=== PATIENT | female | born 1985 | race Caucasian/White ===

== ENCOUNTER 2017-04-16 12:33 | Outpatient (CLI) | payer BC ==
[~2017-04-16] VITALS: Ht 162.6 cm; Wt 75.0 kg
[2017-04-16 12:25] VITALS: BP 104/57
[~2017-04-16 12:33] MED LIST: DOCU-131 PO; FERR325T18 PO; IBUP-1222 PO; OXYC-302 PO; PREN1TAB60 PO
[2017-04-16] MEDS ORDERED: TERBUTALINE 1 MG/ML, 1ML ONE (13:00)
[2017-04-16] MEDS ORDERED: TERBUTALINE 1 MG/ML, 1ML SQ ONE (13:00)
== END 2017-04-16 14:25 | disposition home or self-care (01) ==
LOC: LDOP 12:33
PROVIDERS: ATTEND Obstetrics & Gynecology
DX: O60.00 Preterm labor without delivery, unspecified trimester (principal); Z3A.00 Weeks of gestation of pregnancy not specified
CPT/HCPCS: 59025; 96372; 99211; J3105; G0463

== ENCOUNTER 2017-04-18 13:50 | Outpatient (CLI) | payer BC ==
[~2017-04-18] VITALS: Ht 162.6 cm; Wt 75.0 kg
[2017-04-18 14:28] VITALS: BP 112/67
[2017-04-18] MEDS ORDERED: TERBUTALINE 1 MG/ML, 1ML ONE (15:19)
[2017-04-18] MEDS ORDERED: TERBUTALINE 1 MG/ML, 1ML SQ ONE (15:30)
[2017-04-18 15:50] LABS: MICROSCOPIC INDICATED
== END 2017-04-18 16:04 | disposition home or self-care (01) ==
LOC: LDOP 13:50
PROVIDERS: ATTEND Obstetrics & Gynecology
DX: O26.893 Other specified pregnancy related conditions, third trimester (principal); O62.9 Abnormality of forces of labor, unspecified; R10.9 Unspecified abdominal pain
CPT/HCPCS: 36415; 59025; 81001; 82731; 87086; 99211; G0463

== ENCOUNTER 2017-06-22 22:02 | Inpatient (IN) | payer BC ==
[~2017-06-22] VITALS: Ht 162.6 cm; Wt 78.6 kg
[2017-06-22 22:50] LABS: CULTURE INDICATED? YES; MICROSCOPIC INDICATED
[2017-06-23] MEDS ORDERED: D5%-LACTATED RINGERS 1,000 ML IV SCH (00:58)
[2017-06-23] MEDS ORDERED: OXYTOCIN 30U/ 0.9% NaCL 500ML 500 ML IV ONE (00:58)
[2017-06-23] MEDS ORDERED: LACTATED RINGERS 1,000 ML IV SCH ×2 (00:58→02:05)
[2017-06-23] MEDS ORDERED: SODIUM CITRATE/CITRIC ACID 30 ML UDC PO PRN (01:00)
[2017-06-23] MEDS ORDERED: CALCIUM CARBONATE 500 MG TAB.CHEW PO PRN (01:00)
[2017-06-23] MEDS ORDERED: TERBUTALINE 1 MG/ML, 1ML IVPush PRN (01:00)
[2017-06-23] MEDS ORDERED: ONDANSETRON 2MG/ML, 2ML IV PRN (01:00)
[2017-06-23] MEDS ORDERED: METOCLOPRAMIDE 5 MG/ML, 2ML IVPush PRN (01:00)
[2017-06-23] MEDS ORDERED: FENTANYL PF 100 MCG/2ML IV PRN (01:00)
[2017-06-23] MEDS ORDERED: FENTANYL PF 100 MCG/2ML IVPush PRN (01:00)
[2017-06-23] MEDS ORDERED: NEWBORN KIT ONE (01:02)
[2017-06-23] MEDS ORDERED: OXYTOCIN 30U/ 0.9% NaCL 500ML 500 ML ONE (01:03)
[2017-06-23] MEDS ORDERED: LIDOCAINE-MPF 1%, 5ML ONE (01:03)
[2017-06-23] MEDS ORDERED: METOCLOPRAMIDE 5 MG/ML, 2ML ONE (01:03)
[2017-06-23] MEDS ORDERED: SODIUM CITRATE/CITRIC ACID 30 ML UDC ONE ×2 (01:03→01:04)
[2017-06-23] MEDS ORDERED: MISOPROSTOL 200 MCG TABLET ONE (01:03)
[2017-06-23 01:27] LABS: BASOPHILS # (AUTO) 0.12 x10^3/uL (0-0.1); BASOPHILS % (AUTO) 1 % (0-1); EOSINOPHILS # (AUTO) 0.66 x10^3/uL (0-0.4); EOSINOPHILS % (AUTO) 5 % (1-7); LYMPHOCYTES # (AUTO) 3.03 x10^3/uL (1-3.4); LYMPHOCYTES % (AUTO) 23 % (22-44); MD NO; MEAN CORPUSCULAR HEMOGLOBIN 29.8 pg (27.0-34.8); MEAN CORPUSCULAR HGB CONC 33.2 g/dL (32.4-35.8); MEAN CORPUSCULAR VOLUME 89.5 fL (80-100); MEAN PLATELET VOLUME 8.7 fL (7.4-10.4); MONOCYTES # (AUTO) 0.75 x10^3/uL (0.2-0.8); MONOCYTES % (AUTO) 6 % (2-9); NEUTROPHILS # (AUTO) 8.42 x10^3/uL (1.8-6.8); NEUTROPHILS % (AUTO) 65 % (42-75); PLATELET COUNT 207 x10^3/uL (130-400); RED BLOOD COUNT 3.78 x10^6/uL (3.82-5.3); RED CELL DISTRIBUTION WIDTH 14.3 % (9.6-15.2)
[2017-06-23] MEDS ORDERED: FAMOTIDINE 20 MG/2 ML IVPush ONE (01:30)
[2017-06-23] MEDS ORDERED: FENTANYL/BUPIV./NS/PF 250 ML EPIDCONT ONE (01:34)
[2017-06-23] MEDS ORDERED: BUPIVACAINE 0.25% ONE (01:34)
[2017-06-23] MEDS ORDERED: FENTANYL/BUPIV./NS/PF 250 ML EPIDCONT SCH (02:05)
[2017-06-23] MEDS ORDERED: LACTATED RINGERS 1,000 ML IVBOLUS PRN (02:30)
[2017-06-23] MEDS ORDERED: EPHEDRINE 50 MG/ML, 1ML IVPush PRN (02:30)
[2017-06-23] MEDS ORDERED: LACTATED RINGERS 1,000 ML INTUTE PRN (03:30)
[2017-06-23] MEDS ORDERED: LACTATED RINGERS 1,000 ML INTUTE SCH (03:30)
[2017-06-23] MEDS ORDERED: ONDANSETRON ODT 4 MG ONE (07:40)
[2017-06-23] MEDS ORDERED: ONDANSETRON 4 MG TABLET PO PRN (08:00)
[2017-06-23] MEDS: OXYTOCIN 30U/ 0.9% NaCL 500ML 500 ML IV SCH ×2 (10:50→20:50)
[2017-06-23] MEDS ORDERED: DIPH,PERTUSS(ACELL),TET VAC/PF NC IM-VACC PRN (11:00)
[2017-06-23] MEDS ORDERED: RHOGAM FROM BLOOD BANK 1 NOTE EA IM/IV ONE (11:00)
[2017-06-23] MEDS ORDERED: ACETAMINOPHEN 325 MG TABLET PO PRN ×2 (11:00)
[2017-06-23] MEDS ORDERED: DOCUSATE 100 MG CAPSULE PO PRN (11:00)
[2017-06-23] MEDS ORDERED: MEASLES,MUMPS&RUBELLA VACC/PF 0.5 ML SQ-VACC PRN (11:00)
[2017-06-23] MEDS ORDERED: MISOPROSTOL 200 MCG TABLET PR PRN (11:00)
[2017-06-23] MEDS ORDERED: METHYLERGONOVINE 0.2 MG/ML IM PRN (11:00)
[2017-06-23] MEDS ORDERED: CARBOPROST TROMETHAMINE 250 MCG/ML, 1ML IM PRN (11:00)
[2017-06-23 12:55] VITALS: BP 109/68
[2017-06-23] MEDS: IBUPROFEN 600 MG TABLET PO PRN ×2 (15:48→22:31)
[2017-06-23 17:00] VITALS: BP 99/64
[2017-06-23] MEDS: OXYcodone/APAP 5/325MG TABLET PO PRN (18:39)
[2017-06-23 19:04] LABS: MEAN CORPUSCULAR HEMOGLOBIN 30.7 pg (27.0-34.8); MEAN CORPUSCULAR HGB CONC 34.3 g/dL (32.4-35.8); MEAN CORPUSCULAR VOLUME 89.6 fL (80-100); PLATELET COUNT 195 x10^3/uL (130-400); RED BLOOD COUNT 3.66 x10^6/uL (3.82-5.3); RED CELL DISTRIBUTION WIDTH 14.6 % (9.6-15.2)
[2017-06-23 19:30] VITALS: BP 98/62
[2017-06-23 19:30] LABS: BASOPHILS # (AUTO) 0.07 x10^3/uL (0-0.1); BASOPHILS % (AUTO) 0 % (0-1); EOSINOPHILS # (AUTO) 0.06 x10^3/uL (0-0.4); EOSINOPHILS % (AUTO) 0 % (1-7); LYMPHOCYTES # (AUTO) 2.19 x10^3/uL (1-3.4); LYMPHOCYTES % (AUTO) 12 % (22-44); MD SCAN; MONOCYTES % (AUTO) 5 % (2-9); NEUTROPHILS # (AUTO) 15.42 x10^3/uL (1.8-6.8); NEUTROPHILS % (AUTO) 82 % (42-75)
[2017-06-24 00:15] VITALS: BP 97/60
[2017-06-24] MEDS: OXYcodone/APAP 5/325MG TABLET PO PRN ×3 (02:35→13:39)
[2017-06-24] MEDS: IBUPROFEN 600 MG TABLET PO PRN ×2 (04:24→10:42)
[2017-06-24] MEDS ORDERED: PRENATAL VIT/IRON/FA 1 EACH TABLET PO SCH (09:00)
[2017-06-24] MEDS ORDERED: DOCU-131 PO (13:29)
[2017-06-24] MEDS ORDERED: IBUP-1222 PO (13:29)
== END 2017-06-24 14:00 | disposition home or self-care (01) | DRG 775 ==
LOC: LDOP 22:02 → LDIP 06-23 00:44 → 2NW 06-23 12:55
PROVIDERS: ADMIT Obstetrics & Gynecology; ATTEND Obstetrics & Gynecology
PROC: 10E0XZZ Delivery of Products of Conception, External Approach (ICD-10-PCS; principal; 2017-06-23)
DX: O34.219 Maternal care for unspecified type scar from previous cesarean delivery (principal); O71.82 Other specified trauma to perineum and vulva; Z37.0 Single live birth
CPT/HCPCS: 36415; 81001; 85025; 86850; 86900; 87086; 96374; J3490; Q0162; J3010; J7120; S0028

== ENCOUNTER → 2019-03-06 | Outpatient (CLI) | payer BC ==
[~2019-03-06] MED LIST changes: +OMNIPAQUE 350 MG/ML, 150 ML BOTTLE ONE
== END | disposition home or self-care (01) ==
LOC: RAD 11:36
PROVIDERS: ATTEND Family Medicine
DX: N28.89 Other specified disorders of kidney and ureter (principal); N20.0 Calculus of kidney; N83.202 Unspecified ovarian cyst, left side; R10.9 Unspecified abdominal pain
CPT/HCPCS: 74178; Q9967

== ENCOUNTER 2019-03-24 09:54 | Emergency (ER) | payer BC ==
[~2019-03-24] VITALS: Ht 162.6 cm; Wt 65.9 kg
[~2019-03-24 09:54] MED LIST changes: -OMNIPAQUE 350 MG/ML, 150 ML BOTTLE ONE
[2019-03-24 10:16] VITALS: BP 116/87
--- NOTE | 2019-03-24 10:49 | NUR ---
PT HAS CO KIDNEY STONE PAIN FOR 3 WEEKS. PT STATES SHE HAS BEEN UNABLE TO SLEEP, MEDICATIONS ARENT WORKING, PAIN IS EXCRUIATING. HAS NOT PASSED STONE. UA PROVIDED. AT BEDSIDE.
[2019-03-24 10:52] LABS: CULTURE INDICATED? YES; MICROSCOPIC INDICATED
[2019-03-24 11:40] LABS: ALBUMIN 3.9 g/dL (3.4-5.0); ANION GAP 5 mmol/L (5-15); CALCIUM 8.6 mg/dL (8.5-10.1); CHLORIDE 109 mmol/L (98-107); CREATININE 0.76 mg/dL (0.55-1.02)
[2019-03-24 11:41] LABS: BASOPHILS # (AUTO) 0.04 x10^3/uL (0-0.1); BASOPHILS % (AUTO) 1 % (0-1); EOSINOPHILS # (AUTO) 0.17 x10^3/uL (0-0.4); EOSINOPHILS % (AUTO) 3 % (1-7); LYMPHOCYTES # (AUTO) 2.03 x10^3/uL (1-3.4); LYMPHOCYTES % (AUTO) 38 % (22-44); MD NO; MEAN CORPUSCULAR HEMOGLOBIN 30.1 pg (27.0-34.8); MEAN CORPUSCULAR HGB CONC 33.6 g/dL (32.4-35.8); MEAN CORPUSCULAR VOLUME 89.7 fL (80-100); MEAN PLATELET VOLUME 8.7 fL (7.4-10.4); MONOCYTES # (AUTO) 0.37 x10^3/uL (0.2-0.8); MONOCYTES % (AUTO) 7 % (2-9); NEUTROPHILS # (AUTO) 2.72 x10^3/uL (1.8-6.8); NEUTROPHILS % (AUTO) 51 % (42-75); PLATELET COUNT 231 x10^3/uL (130-400); RED BLOOD COUNT 4.49 x10^6/uL (3.82-5.3); RED CELL DISTRIBUTION WIDTH 12.7 % (9.6-15.2)
--- NOTE | 2019-03-24 12:37 | NUR ---
MD AT BEDSIDE DISCUSSING POC TO DC.
--- NOTE | 2019-03-24 13:14 | NUR ---
Patient/Caregiver given discharge instructions and they have confirmed that they understand the instructions. Patient ambulatory with steady gait.
== END 2019-03-24 13:28 | disposition home or self-care (01) ==
LOC: ED 13:00
DX: R10.12 Left upper quadrant pain (principal)
CPT/HCPCS: 36415; 74176; 80048; 81001; 82040; 84703; 85025; 87086; 93005; 99284

== ENCOUNTER 2019-10-11 10:47 | Emergency (ER) | payer BC ==
[~2019-10-11] VITALS: Ht 162.6 cm; Wt 66.6 kg
[2019-10-11] MEDS ORDERED: SUCR1TAB PO (11:22)
[2019-10-11] MEDS ORDERED: ONDA4TAB13 SL (11:23)
[2019-10-11] MEDS ORDERED: TRAM50TA2 PO (11:23)
--- NOTE | 2019-10-11 11:23 | NUR ---
PT C/O EPIGATRIC ABDOMINAL PAIN FOR ABOUT 6 WEEKS THAT MAINLY OCCURS AT NOC. PT IS SUPOSE TO GET EGD IN 3 DAYS BUT PAIN IS PREVENTING HER FROM SLEEPING. PT HAD HX OF SIMILAR PAIN ABOUT 8 MONTHS AGO BUT RESOLVED JUST PRIOR TO PT CANCELING PRIOR EGD THAT WAS SCHEDULED. UA BEING COLLECTED.
[2019-10-11] MEDS ORDERED: MAALOX/HYOSCYAMINE/LIDOCAINE 45 ML BTL PO ONE (11:30)
[2019-10-11] MEDS ORDERED: MAALOX/HYOSCYAMINE/LIDOCAINE 45 ML BTL ONE (11:31)
[2019-10-11 11:38] LABS: BASOPHILS # (AUTO) 0.05 x10^3/uL (0-0.1); BASOPHILS % (AUTO) 1 % (0-1); EOSINOPHILS # (AUTO) 0.28 x10^3/uL (0-0.4); EOSINOPHILS % (AUTO) 4 % (1-7); LYMPHOCYTES # (AUTO) 1.99 x10^3/uL (1-3.4); LYMPHOCYTES % (AUTO) 27 % (22-44); MD NO; MEAN CORPUSCULAR HEMOGLOBIN 30.4 pg (27.0-34.8); MEAN CORPUSCULAR HGB CONC 34.1 g/dL (32.4-35.8); MEAN CORPUSCULAR VOLUME 89.1 fL (80-100); MEAN PLATELET VOLUME 8.6 fL (7.4-10.4); MONOCYTES # (AUTO) 0.45 x10^3/uL (0.2-0.8); MONOCYTES % (AUTO) 6 % (2-9); NEUTROPHILS # (AUTO) 4.66 x10^3/uL (1.8-6.8); NEUTROPHILS % (AUTO) 63 % (42-75); PLATELET COUNT 226 x10^3/uL (130-400); RED BLOOD COUNT 4.52 x10^6/uL (3.82-5.3); RED CELL DISTRIBUTION WIDTH 12.8 % (9.6-15.2)
[2019-10-11 11:44] LABS: MICROSCOPIC INDICATED
[2019-10-11 11:51] LABS: ALANINE AMINOTRANSFERASE 19 U/L (12-78); ALBUMIN 4.2 g/dL (3.4-5.0); ANION GAP 5 mmol/L (5-15); CALCIUM 8.5 mg/dL (8.5-10.1); CHLORIDE 108 mmol/L (98-107); CREATININE 0.72 mg/dL (0.55-1.02)
[2019-10-11 11:56] LABS: ALKALINE PHOSPHATASE 61 U/L (45-117); BILIRUBIN,TOTAL 0.3 mg/dL (0.2-1.0); TOTAL PROTEIN 7.4 g/dL (6.4-8.2)
--- NOTE | 2019-10-11 12:38 | NUR ---
CHART UP FOR MD WHIPPLE. PT AWARE.VSS. PT REPORTS FEELING BETTER AFTER GI COCKTAIL.
[2019-10-11 12:39] VITALS: BP 102/59
--- NOTE | 2019-10-11 13:00 | NUR ---
REPORT TO YANNA Cook RN.
== END 2019-10-11 13:29 | disposition home or self-care (01) ==
LOC: ED 11:55
DX: K21.0 Gastro-esophageal reflux disease with esophagitis (principal); G89.29 Other chronic pain; R10.9 Unspecified abdominal pain; R07.89 Other chest pain; R11.2 Nausea with vomiting, unspecified; R94.31 Abnormal electrocardiogram [ECG] [EKG]; Z90.49 Acquired absence of other specified parts of digestive tract
CPT/HCPCS: 36415; 80053; 81001; 83690; 84703; 85025; 87086; 93005; 99284